=== PATIENT | male | born 1990 | race Caucasian/White ===

== ENCOUNTER 2023-05-04 15:29 | Emergency (ER) | payer BC ==
[~2023-05-04] VITALS: Ht 180.3 cm; Wt 95.3 kg
[2023-05-04 15:36] VITALS: BP_SYST 140; PULSE 83; RESP 16; TEMP 97.4; O2SAT 100
[2023-05-04] MEDS ORDERED: KETOROLAC TROMETHAMINE 15 MG VIAL IM ONE (16:00)
[2023-05-04] MEDS ORDERED: methocarbamoL 500 MG TABLET PO ONE (16:00)
[2023-05-04] MEDS ORDERED: predniSONE 20 MG TABLET PO ONE (16:00)
[2023-05-04] MEDS ORDERED: LIDOCAINE PATCH 5% 1 EA TP ONE (16:00)
[2023-05-04] MEDS ORDERED: predniSONE 20 MG TABLET ONE (16:15)
[2023-05-04] MEDS ORDERED: PRED20TA PO (16:18)
[2023-05-04] MEDS ORDERED: IBUP-1969 PO (16:18)
[2023-05-04] MEDS ORDERED: METH-634 PO (16:18)
[2023-05-04] MEDS ORDERED: KETOROLAC TROMETHAMINE 30 MG VIAL IM ONE (16:45)
[2023-05-04] MEDS ORDERED: HYDROcodone/ACETAMIN 10-325 MG TAB PO ONE (17:00)
[2023-05-04] MEDS ORDERED: OXYC-128 PO (17:31)
[2023-05-04 18:48] VITALS: BP_SYST 152; PULSE 83; RESP 16; TEMP 97.4; O2SAT 100
== END 2023-05-04 18:47 | disposition home or self-care (01) ==
LOC: SED 15:29
DX: M54.17 Radiculopathy, lumbosacral region (principal); M54.50 Low back pain, unspecified; M79.662 Pain in left lower leg; Z79.899 Other long term (current) drug therapy
CPT/HCPCS: 99284; 96372; J7512